=== PATIENT | female | born 1950 | race Caucasian/White ===

== ENCOUNTER → 2016-08-08 | Outpatient (CLI) | payer OTHER | LOC: BRMIMAGING 14:40 | PROVIDERS: ATTEND Family Medicine | DX: R06.02 Shortness of breath (principal) | CPT/HCPCS: 71020-PO ==

== ENCOUNTER → 2016-10-18 | Outpatient (CLI) | payer OTHER | LOC: BRMIMAGING 14:30 | PROVIDERS: ATTEND Family Medicine | DX: Z12.31 Encounter for screening mammogram for malignant neoplasm of breast (principal) | CPT/HCPCS: G0202 ==

== ENCOUNTER → 2017-08-04 | Outpatient (CLI) | payer OTHER | LOC: BRMIMAGING 16:10 | PROVIDERS: ATTEND Family Medicine | DX: R05 Cough (principal) | CPT/HCPCS: 71046-PO ==